=== PATIENT | female | born 1930 | race Caucasian/White ===

== ENCOUNTER 2022-06-24 14:41 | Inpatient (IN) | payer MEDICARE, OTHER ==
[2022-06-24] MEDS ORDERED: Acetaminophen 325 MG Tab PO ONE (15:25)
[2022-06-24] MEDS ORDERED: Dextrose 5%-Lactated Ringers 1,000 ML IV SCH (15:30)
[2022-06-24 16:51] LABS: CORONAVIRUS COVID-19 NAA NEGATIVE (NEGATIVE)
[2022-06-24] MEDS ORDERED: Doxycycline 100 MG in Sodium Chloride 0.9% 100 ML IV ONE (17:20)
[2022-06-24] MEDS ORDERED: Magnesium Sulfate/Water 4 GM in Premix Bag 1 BAG IV ONE (17:24)
[2022-06-24] MEDS ORDERED: Sodium Chloride 0.9% 100 ML ONE (17:43)
[2022-06-24] MEDS: Potassium Chloride 10 MEQ in Premix Bag 1 BAG IV SCH ×2 (18:00→19:16)
[2022-06-24] MEDS ORDERED: Albuterol 0.083% 2.5 MG/3 ML Neb Soln NEB PRN (18:27)
[2022-06-24] MEDS ORDERED: Acetaminophen 325 MG Tab PO PRN (18:29)
[2022-06-24] MEDS ORDERED: Ondansetron 4 MG/2 ML SDV IV PRN (18:29)
[2022-06-24] MEDS: Albuterol/Ipratropium 3.0-0.5 MG/3 ML Neb Soln NEB SCH (20:55)
[2022-06-24] MEDS: Dextrose 5%-Lact Ringers w/KCl 1,000 ML IV SCH (21:47)
[2022-06-25] MEDS: Albuterol/Ipratropium 3.0-0.5 MG/3 ML Neb Soln NEB SCH ×4 (05:13→21:00)
[2022-06-25] MEDS: Dextrose 5%-Lact Ringers w/KCl 1,000 ML IV SCH (06:13)
[2022-06-25] MEDS ORDERED: Doxycycline 100 MG in Sodium Chloride 0.9% 100 ML IV SCH (07:00)
[2022-06-25] MEDS ORDERED: guaiFENesin 600 MG Tab.ER PO PRN (10:19)
[2022-06-25] MEDS: Pantoprazole 40 MG Tab.CR PO SCH (11:32)
[2022-06-25] MEDS: Doxycycline 100 MG in Sodium Chloride 0.9% 100 ML IV SCH (18:16)
[2022-06-26] MEDS: Albuterol/Ipratropium 3.0-0.5 MG/3 ML Neb Soln NEB SCH ×4 (03:58→20:13)
[2022-06-26] MEDS: Levothyroxine 125 MCG Tab PO SCH (06:05)
[2022-06-26] MEDS: Doxycycline 100 MG in Sodium Chloride 0.9% 100 ML IV SCH ×2 (06:08→18:26)
[2022-06-26] MEDS: Pantoprazole 40 MG Tab.CR PO SCH (08:22)
[2022-06-26] MEDS: Tiotropium Bromide 4 GM Inhalation Spray (2.5mcg/1 dose; 10 doses) INH SCH (08:57)
[2022-06-26] MEDS ORDERED: Warfarin 2.5 MG Tab PO SCH (18:00)
[2022-06-27] MEDS: Albuterol/Ipratropium 3.0-0.5 MG/3 ML Neb Soln NEB SCH ×3 (02:53→15:36)
[2022-06-27] MEDS: Doxycycline 100 MG in Sodium Chloride 0.9% 100 ML IV SCH (06:02)
[2022-06-27] MEDS: Levothyroxine 125 MCG Tab PO SCH (06:02)
[2022-06-27] MEDS: Tiotropium Bromide 4 GM Inhalation Spray (2.5mcg/1 dose; 10 doses) INH SCH (08:19)
[2022-06-27] MEDS: Pantoprazole 40 MG Tab.CR PO SCH (09:18)
[2022-06-27 12:15] VITALS: BP 140/64; PULSE 87
[2022-06-27] MEDS ORDERED: Warfarin 2.5 MG Tab PO SCH (18:00)
== END 2022-06-27 16:37 | disposition home or self-care (01) | DRG 193 ==
LOC: JD.ED 14:41 → JD.MS 18:18 → UNDOADMIN 18:18 → JD.MS 18:32 → JD.ICU 18:32 → JD.MS 06-25 07:50 → JD.ICU 06-27 05:46 → JD.MS 06-27 05:46
PROVIDERS: ADMIT Internal Medicine; ATTEND Internal Medicine
DX: J18.9 Pneumonia, unspecified organism (principal); J96.01 Acute respiratory failure with hypoxia; I34.1 Nonrheumatic mitral (valve) prolapse; E03.9 Hypothyroidism, unspecified; D68.8 Other specified coagulation defects; E78.5 Hyperlipidemia, unspecified; I10 Essential (primary) hypertension; K21.9 Gastro-esophageal reflux disease without esophagitis; Z20.822 Contact with and (suspected) exposure to COVID-19; E87.6 Hypokalemia; Z87.891 Personal history of nicotine dependence; E78.00 Pure hypercholesterolemia, unspecified; J43.9 Emphysema, unspecified; M19.90 Unspecified osteoarthritis, unspecified site; Z28.310 Unvaccinated for COVID-19; E83.42 Hypomagnesemia; R79.1 Abnormal coagulation profile; Z79.899 Other long term (current) drug therapy; Z88.8 Allergy status to other drugs, medicaments and biological substances; Z86.73 Personal history of transient ischemic attack (TIA), and cerebral infarction without residual deficits; Z88.0 Allergy status to penicillin; Z90.49 Acquired absence of other specified parts of digestive tract; Z79.01 Long term (current) use of anticoagulants; Z88.6 Allergy status to analgesic agent; Z88.5 Allergy status to narcotic agent; Z88.2 Allergy status to sulfonamides; Z79.890 Hormone replacement therapy
CPT/HCPCS: 0240U; 36415; 36600; 71045; 80048; 80053; 81001; 82803; 83605; 83735; 83880; 84484; 85025; 85027; 85610; 85730; 86140; 87040; 93005; 94640; 94667; 94668; 94761; 97110; 97112; 97116; 97162; 97166; 97530; 93010; 99284; A9270-GY; J3475; J3480; J3490; J7121; J7620-GY